=== PATIENT | female | born 1955 | race Caucasian/White ===

== ENCOUNTER 2020-10-04 09:50 | Outpatient (REF) | payer MEDICARE, SELFPAY ==
[2020-10-04 11:36] LABS: Alanine Aminotransferase 18 U/L (0-31); Albumin Level 4.4 g/dL (3.5-5.0); Alkaline Phosphatase 56 U/L (39-117); Anion Gap 13 (12-20); Aspartate Amino Transferase 16 U/L (5-31); Bilirubin Total 1.1 mg/dL (0.0-1.0); Blood Urea Nitrogen 18 mg/dL (9-16); Calcium 9.8 mg/dL (8.4-10.2); Carbon Dioxide 23 mmol/L (22-29); Chloride 107 mmol/L (96-108); Estimated Glomerular Filt Rate > 60; Glucose Random 93 mg/dL (60-115); Potassium 4.4 mmol/L (3.3-5.1); Sodium 139 mmol/L (135-145); Total Protein 6.9 g/dL (6.5-8.0)
== END 2020-10-04 09:51 | disposition home or self-care (01) ==
LOC: HO.MANLDS 09:50
PROVIDERS: PCP Physician Assistant; Visit Provider Physician Assistant
DX: I10 Essential (primary) hypertension (principal)
CPT/HCPCS: 36415; 80053

== ENCOUNTER 2021-03-14 09:19 | Outpatient (REF) | payer MEDICARE, SELFPAY ==
[2021-03-14 11:07] LABS: MANUAL DIFF FLAG NO
[2021-03-14 11:09] LABS: Basophils Percent Auto 0.7 % (0-2); Eosinophils Absolute Auto 0.4 X10*3/uL (0.0-0.4); Eosinophils Percent Auto 6.7 % (0-4); Hematocrit 42.7 % (37.0-47.0); Hemoglobin 13.8 g/dl (12.0-16.0); Imm Gran Abs Auto 0.02 X10*3/uL (0.00-0.03); Imm Gran Pct Auto 0.3 % (0.0-0.4); Lymphocytes Absolute Auto 1.4 X10*3/uL (1.2-4.9); Lymphocytes Percent Auto 23.4 % (20-40); Mean Corpuscular HGB Conc 32.3 g/dl (31.0-35.0); Mean Corpuscular Hemoglobin 30.2 pg (27.0-33.0); Mean Corpuscular Volume 93.4 fL (80.0-98.0); Mean Platelet Volume 10.1 fL (9.4-12.3); Monocytes Absolute Auto 0.4 X10*3/uL (0.1-1.2); Monocytes Percent Auto 7.4 % (2-11); Neutrophils Absolute Auto 3.6 x10*3/uL (2.0-8.3); Neutrophils Percent Auto 61.5 % (45-73); Platelet Count 253 X10*3/uL (160-400); Red Blood Count 4.57 X10*6/uL (4.20-5.50); Red Cell Distribution Width 12.6 % (11.0-16.0); White Blood Count 5.8 X10*3/uL (4.8-10.8)
[2021-03-14 11:23] LABS: Alanine Aminotransferase 26 U/L (0-31); Albumin Level 4.1 g/dL (3.5-5.0); Alkaline Phosphatase 65 U/L (39-117); Anion Gap 11 (12-20); Aspartate Amino Transferase 23 U/L (5-31); Bilirubin Total 1.4 mg/dL (0.0-1.0); Blood Urea Nitrogen 19 mg/dL (9-16); Calcium 9.7 mg/dL (8.4-10.2); Carbon Dioxide 27 mmol/L (22-29); Chloride 106 mmol/L (96-108); Cholesterol 277 mg/dL; Estimated Glomerular Filt Rate > 60; Glucose Fasting 91 mg/dL (60-99); HDL Cholesterol 53 mg/dL; Iron 136 mcg/dL (30-160); LDL Cholesterol Calculated 197 mg/dl; Percent Iron Saturation 35 % (15-50); Potassium 4.4 mmol/L (3.3-5.1); Sodium 140 mmol/L (135-145); Total Iron Binding Capacity 384 mcg/dL (228-428); Total Protein 6.7 g/dL (6.5-8.0); Triglycerides 136 mg/dL; Unsaturated Iron Binding 248 ug/dL
[2021-03-14 11:46] LABS: Free T4 (Free Thyroxine) 1.35 ng/dL (0.71-1.85); Vitamin D 25-OH Total 36.1 ng/mL (>30)
[2021-03-14 12:03] LABS: Folate 19.6 ng/mL (> or = 4.0); Vitamin B12 1836 pg/mL (200-900)
[2021-03-14 12:16] LABS: Ferritin 26 ng/mL (10-250); Thyroid Stimulating Hormone 0.96 uIU/mL (0.32-4.0)
== END 2021-03-14 09:20 | disposition home or self-care (01) ==
LOC: HO.MANLDS 09:19
PROVIDERS: PCP Physician Assistant; Visit Provider Physician Assistant
DX: L65.8 Other specified nonscarring hair loss (principal); E78.5 Hyperlipidemia, unspecified
CPT/HCPCS: 36415; 80053; 80061; 82306; 82607; 82728; 82746; 83540; 84439; 84443; 85025

== ENCOUNTER 2021-12-03 07:59 | Outpatient (REF) | payer MEDICARE, SELFPAY ==
[2021-12-03 11:29] LABS: MANUAL DIFF FLAG NO
[2021-12-03 11:32] LABS: Basophils Absolute Auto 0.1 X10*3/uL (0.0-0.2); Eosinophils Absolute Auto 0.3 X10*3/uL (0.0-0.4); Eosinophils Percent Auto 5.9 % (0-4); Hematocrit 39.7 % (37.0-47.0); Hemoglobin 12.7 g/dl (12.0-16.0); Imm Gran Abs Auto 0.02 X10*3/uL (0.00-0.03); Imm Gran Pct Auto 0.4 % (0.0-0.4); Lymphocytes Absolute Auto 1.4 X10*3/uL (1.2-4.9); Lymphocytes Percent Auto 27.9 % (20-40); Mean Corpuscular Hemoglobin 30.4 pg (27.0-33.0); Mean Platelet Volume 10.2 fL (9.4-12.3); Monocytes Absolute Auto 0.5 X10*3/uL (0.1-1.2); Neutrophils Absolute Auto 2.9 x10*3/uL (2.0-8.3); Neutrophils Percent Auto 55.8 % (45-73); Platelet Count 228 X10*3/uL (160-400); Red Blood Count 4.18 X10*6/uL (4.20-5.50); Red Cell Distribution Width 12.9 % (11.0-16.0); White Blood Count 5.1 X10*3/uL (4.8-10.8)
[2021-12-03 11:52] LABS: Alanine Aminotransferase 14 U/L (0-31); Alkaline Phosphatase 59 U/L (39-117); Anion Gap 13 (12-20); Aspartate Amino Transferase 17 U/L (5-31); Blood Urea Nitrogen 15 mg/dL (9-16); Calcium 9.5 mg/dL (8.4-10.2); Carbon Dioxide 28 mmol/L (22-29); Chloride 102 mmol/L (96-108); Cholesterol 241 mg/dL; Estimated Glomerular Filt Rate > 60; Glucose Random 90 mg/dL (60-115); HDL Cholesterol 49 mg/dL; LDL Cholesterol Calculated 167 mg/dl; Potassium 4.3 mmol/L (3.3-5.1); Sodium 139 mmol/L (135-145); Total Protein 6.6 g/dL (6.5-8.0); Triglycerides 125 mg/dL
[2021-12-03 12:25] LABS: Free T4 (Free Thyroxine) 1.13 ng/dL (0.71-1.85); Thyroid Stimulating Hormone 0.43 uIU/mL (0.32-4.0)
[2021-12-04 18:56] LABS: Lyme Abs Screen <0.90 index
== END 2021-12-03 08:00 | disposition home or self-care (01) ==
LOC: HO.MANLDS 07:59
PROVIDERS: Visit Provider Physician Assistant
DX: Z00.00 Encounter for general adult medical examination without abnormal findings (principal); M25.561 Pain in right knee
CPT/HCPCS: 36415; 80053; 80061; 84439; 84443; 85025; 86617; 86618

== ENCOUNTER 2023-07-14 09:31 | Outpatient (REF) | payer MEDICARE, SELFPAY ==
[2023-07-14 13:21] LABS: MANUAL DIFF FLAG NO
[2023-07-14 13:41] LABS: Basophils Absolute Auto 0.1 X10*3/uL (0.0-0.2); Basophils Percent Auto 1.4 % (0-2); Eosinophils Absolute Auto 0.4 X10*3/uL (0.0-0.4); Eosinophils Percent Auto 7.7 % (0-4); Hematocrit 40.2 % (37.0-47.0); Hemoglobin 13.1 g/dl (12.0-16.0); Imm Gran Abs Auto 0.01 X10*3/uL (0.00-0.03); Imm Gran Pct Auto 0.2 % (0.0-0.4); Lymphocytes Absolute Auto 1.6 X10*3/uL (1.2-4.9); Lymphocytes Percent Auto 32.1 % (20-40); Mean Corpuscular HGB Conc 32.6 g/dl (31.0-35.0); Mean Corpuscular Hemoglobin 30.8 pg (27.0-33.0); Mean Corpuscular Volume 94.4 fL (80.0-98.0); Mean Platelet Volume 10.7 fL (9.4-12.3); Monocytes Absolute Auto 0.4 X10*3/uL (0.1-1.2); Monocytes Percent Auto 8.5 % (2-11); Neutrophils Absolute Auto 2.5 x10*3/uL (2.0-8.3); Neutrophils Percent Auto 50.1 % (45-73); Platelet Count 211 X10*3/uL (160-400); Red Blood Count 4.26 X10*6/uL (4.20-5.50); Red Cell Distribution Width 13.4 % (11.0-16.0); White Blood Count 5.1 X10*3/uL (4.8-10.8)
[2023-07-14 13:57] LABS: Estimated Average Glucose 105 mg/dL; Hemoglobin A1c % 5.3 % (<6.0)
[2023-07-14 14:04] LABS: Alanine Aminotransferase 17 U/L (0-31); Albumin Level 4.2 g/dL (3.5-5.0); Alkaline Phosphatase 62 U/L (39-117); Anion Gap 12 (12-20); Aspartate Amino Transferase 20 U/L (5-31); Bilirubin Total 0.6 mg/dL (0.0-1.0); Blood Urea Nitrogen 23 mg/dL (9-16); Calcium 9.9 mg/dL (8.4-10.2); Carbon Dioxide 24 mmol/L (22-29); Chloride 107 mmol/L (96-108); Cholesterol 207 mg/dL (<200); Estimated Glomerular Filt Rate 52; Glucose Random 83 mg/dL (60-115); HDL Cholesterol 54 mg/dL (>40); LDL Cholesterol Calculated 137 mg/dL (<100); Potassium 4.4 mmol/L (3.3-5.1); Sodium 139 mmol/L (135-145); Total Protein 6.9 g/dL (6.5-8.0); Triglycerides 84 mg/dL (<150)
[2023-07-14 14:22] LABS: Free T4 (Free Thyroxine) 1.27 ng/dL (0.71-1.85); Thyroid Stimulating Hormone 0.95 uIU/mL (0.32-4.0); Vitamin D 25-OH Total 57.1 ng/mL (>30)
== END 2023-07-14 09:32 | disposition home or self-care (01) ==
LOC: HO.MANLDS 09:31
PROVIDERS: Visit Provider Physician Assistant
DX: Z00.00 Encounter for general adult medical examination without abnormal findings (principal)
CPT/HCPCS: 36415; 80053; 80061; 82306; 83036; 84439; 84443; 85025

== ENCOUNTER 2024-09-01 08:11 | Outpatient (REF) | payer MEDICARE, SELFPAY ==
--- OUTSIDE RECORDS SUMMARY | 2024-09-01 08:20 | XMS_ITS | Data Portability ---
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 REVIEW OF PRIOR EXTERNAL NOTES/RESULTS, ORDERING OF TEST(S) CATEGORY 2. ASSESSMENT REQUIRING INDEPENDENT HISTORIAN(S) INCLUDE WHO THE HISTORIAN IS AND RELATION TO PT AND WHY PT IS UNABLE TO GIVE COMPLETE HISTORY ELEMENT 3: RISK (LOW) RISK OF COMPLICATIONS AND/OR MORBIDITY OR MORTALITY OF PATIENT MANAGEMENT PROVIDER MUST THOROUGHLY DOCUMENT ALL OF THE ELEMENTS COVERED Not available 01/14/2022 12:08:33 07/02/2023 07/02/2023 will [email or web address] Not available 06/11 14:03:23 Plan of Treatment Reminders Order Date Submit Date Provider Last Modified By Organization Details Last Modified Time Details Appointments ANNUAL EXAM 2025 09:00A SHELTON BEUGM Not available Not available Not available Lab CMP, serum or plasma 2024 025 [facility] [address] [facility], [address], [place], [address], 07/28/2024 09:28:51 CBC w/ auto diff 2024 025 [facility], [address] [facility], [address], [place], [address], 07/28/2024 09:28:51 lipid panel, blood 2024 025 [facility], [address] [place] [address], [address], [place], [address], 07/28/2024 09:28:50 CMP, serum or plasma 2023 024 [facility], [address] [place] [address], [address], [place], [address], 07/15/2023 11:28:54 CBC w/ auto diff 2023 024 [facility], [address] [place] [address], [address], [place], [address], 07/15/2023 11:28:55 lipid panel, blood 2023 024 [facility], [address] [place] [address], [address], [place], [address], 07/15/2023 11:28:55 vitamin D, 25-hydrox y, total, serum 2023 024 [facility], [address] [place] [address], [address], [place], [address], 07/15/2023 11:28:55 hemoglobi n A1c, QN, blood 2023 024 [facility], [address] [place] [address], [address], [place], [address], 07/02/2023 14:05:07 TSH + free T4, serum 2023 024 [facility], [address] [place] [address], [place], [address], 07/15/2023 11:28:55 Referral gastroent erologist referral 2023 024 [facility], [address], [place], [address], 07/04/2023 08:22:39 orthopedi c surgeon referral - please eval for knee replaceme nt 2022 023 jo-ann Moncada MD, [address], [place], [address], 06/14/2022 10:39:32 Procedures None recorded. Surgeries None recorded. Imaging MAMMO, screening , digital, bilateral 2023 024 [email or web address] Not available 07/16/2023 08:31:54 Medication Orders oxybutyni n chloride ER 5 mg tablet,ex tended release 24 hr 2024 025 [id number], [address], [place], [phone], 07/28/2024 09:24:31 bupropion HCl XL 300 mg 24 hr tablet, extended release 2024 025 [id number], [address], [place], [phone], 07/28/2024 09:16:31 Patient TargetsNo targets recorded. Patient Instructions Encounter Date Encounter Id Patient Instructions Last Modified By Organization Details Last Modified Time 06/12/2022 [id number] learning about mood disorders Not available 06/12/2022 15:38:21 Reason for Referral Orthopedic Surgeon Referral for Osteoarthritis of left knee joint please eval for knee replacement Referring Physician: Karthikeyan Pineda, Internal Medicine, Encounter Date: 06/12/2022 Conveyor Attendant Referral for Screening for malignant neoplasm of colon needs 10 year screening colonoscopy, having issues with dysphagia and GERD Referring Physician: Nela James, Internal Medicine, Encounter Date: 07/02/2023 Results Created Date Observation Date Name Description Value Unit Range Abnormal Flag Note LastModifiedBy Organization Detail LastModifiedTime Result Notes None recorded. Problems Name Problem SNOMED Code Status Onset Date Resolution Date Notes Provider Name and Address Organization Details Recorded Time Hypothyr oidism 54060858 Active 2017 Not Available [facility] 0 02:44:18 Hypercho lesterol emia 97606048 Active 2017 Not Available [facility] 0 02:44:18 Sleep apnea 46590778 Active 2017 Not Available [facility] 0 02:44:18 Low back pain 099244930 Active 2017 Not Available [facility] 0 02:44:18 Knee pain Active 2017 Not Available [facility] 0 02:44:18 Obstruct ashtyn sleep apnea syndrome 40376620 Completed 201701/27/2018 [email or web address] 8 08:37:45 History of calculus of kidney 746038046 Active 2017 Not Available [facility] 0 02:44:18 [facility] hyperten markel 04093286 Active 2018 Not Available [facility] 0 02:44:18 Depressi ve disorder 50980084 Active 2018 F33.8 Not Available [facility] 0 02:44:18 Body mass index 30+ - obesity 865391400 Active 2019 Not Available [facility] 0 02:44:18 Urinary incontin ence 837739295 Active 2021 SHELTON RAMIREZ [address] [place], [address], [facility] 2 13:50:46 Constipa tion 71550394 Active 2021 SHELTON RAMIREZ [address] [place], [address], [facility] 2 13:51:34 Pain of bilatera l knee joints 49565531423 4104 Active 2021 SHELTON RAMIREZ [address] [place], [address], [facility] 2 13:54:14 Loss of hair 530812786 Active 2021 SHELTON RAMIREZ [address] [place], [address], [facility] 2 13:58:40 Irritabl e bowel syndrome characte rized by constipa tion 084256359 Active 2021 SHELTON RAMIREZ [address] [place], [address], [facility] 2 12:36:32 Osteoart hritis of left knee joint 42777132242 9109 Active 2021 Karthikeyan Pineda DO [address] [place] [address], [address], [facility] 2 12:08:47 Cobalami n deficien cy 755586644 Active 2021 Karthikeyan Pineda DO [address] [place] [address], [address], [facility] 2 12:08:49 Osteoart hritis of right knee joint 41324969241 9100 Active 2022 Karthikeyan Pineda DO [address] [place] [address], [address], [facility] 3 11:55:07 Osteoart hritis of knee 658089503 Active 2022 Karthikeyan Pineda DO [address] [place] [address], [address], [facility] 3 15:33:37 COVID-19 500537312 Active 2023 SHELTON RAMIREZ [address] [place] [address], [address], [facility] 4 13:57:06 Anxiety 85410512 Active 2024 SHELTON RAMIREZ [address] [place] [address], [address], [facility] 5 09:15:49 Overacti ve urinary bladder 749000763 Active 2024 SHELTON RAMIREZ [address] [place] [address], [address], [facility] 5 09:23:25 Notes:TKR L Problem Notes None recorded. Procedures Surgical History Date Name Laterality Status Provider Name and Address Organization Details Recorded Time 023 Corticosteroid Injection completed Karthikeyan Pineda DO [address] [place] [address], [address], [facility] 06/12/2022 15:37:40 023 Corticosteroid Injection completed Karthikeyan Pineda DO [address] [place] [address], [address], [facility] 03/01/2022 11:58:21 022 Corticosteroid Injection completed Karthikeyan Pineda DO [address] [place] [address], [address], [facility] 01/14/2022 12:06:31 021 Corticosteroid Injection completed Karthikeyan Pineda DO [address] [place] [address], [address], [facility] 12/01/2020 16:36:08 017 Date of Last Pap Smear completed Lalitha López NP, S [address] [place] [address], [address], [facility] 01/27/2018 10:40:32 tonsillectomy completed Lalitha naranjo NP, S [address] [place] [address], [address], [facility] 01/27/2018 10:38:07 mammography and biopsy of right breast completed Lalitha López NP, S [address] [place] [address], [address], [place] [facility] 01/27/2018 10:38:23 Unlisted px arthroscopy completed Lalitha López NP, S [address] [place] [address], [address], [facility] 01/27/2018 10:38:47 laparoscopy completed Lalitha Hoang i, NP, S [address] [place] [address], [address], [facility] 01/27/2018 10:39:21 Caesarean Section completed Lalitha López NP, S [address] [place] [address], [address], [facility] 01/27/2018 10:39:31 ultrasonic fragmentation of urinary stone through percutaneous nephrostomy completed Lalitha López NP, S [address] [place] [address], [address], [facility] 01/27/2018 10:39:44 Removal of fallopian tube completed Lalitha López NP, S [address] [place] [address], [address], [facility] 01/27/2018 10:41:57 Imaging Results None recorded. Procedure Notes None recorded. Medical Equipment None Reported. Allergies No known drug allergies Medications Name Sig Start Date Stop Date Status Note LastModified by Organization Details LastModified Time celecoxib 200 mg capsule TAKE 1 CAPSULE BY MOUTH EVERY DAY 09/11 completed Not Available Not Available Not Available amoxicillin 500 mg capsule TAKE 4 CAPSULES BY MOUTH 1 HOUR BEFORE DENTAL WORK DIRECTED 07/01 completed Not Available Not Available Not Available phenazopyri dine 200 mg tablet TAKE 1 TABLET BY MOUTH EVERY 8 HOURS NEEDED 07/28 completed Not Available Not Available Not Available tramadol 50 mg tablet TAKE 1 TO 2 TABLETS BY MOUTH EVERY 6 HOURS NEEDED FOR MILD PAIN. DO NOT DRIVE WHILE TAKING THIS MEDICATIO N 09/11 completed Not Available Not Available Not Available amoxicillin 500 mg tablet TAKE 4 TABLETS BY MOUTH ONE HOUR BEFORE PROCEDURE active Not Available Not Available No t Available oxycodone-a cetaminophe n 5 mg-325 mg tablet TAKE 1 TABLET BY MOUTH EVERY 6 HOURS NEEDED FOR PAIN 11/21 completed Not Available Not Available Not Available pantoprazol e 40 mg tablet,lala louis release 09/11 completed Not Available Not Available Not Available lisinopril 10 mg tablet cut pill in half and take half a pill every day as directed 10/03 completed Not Available Not Available Not Available oxybutynin chloride ER 5 mg tablet,exte nded release 24 hr TAKE 1 TABLET BY MOUTH EVERY DAY 2024 active Not Available Not Available Not Avai lable omeprazole 20 mg capsule,del ayed release TAKE 1 CAPSULE BY MOUTH DAILY 30 MINUTES BEFORE BREAKFAST active Not Available Not Available No t Available lisinopril 5 mg tablet TAKE 1 TABLET BY MOUTH EVERY DAY active Not Available Not Available No t Available polyethylen e glycol 3350 17 gram/dose oral powder MIX AND DRINK 17 GRAMS BY MOUTH EVERY NIGHT AT BEDTIME 09/11 completed Not Available Not Available Not Available ketoconazol e 2 % topical cream APPLY TOPICALLY TO THE AFFECTED AREA EVERY DAY 07/01 completed Not Available Not Available Not Available naproxen 500 mg tablet TAKE 1 TABLET BY MOUTH TWICE A DAY NEEDED FOR 30 DAYS 09/11 completed Not Available Not Available Not Available levothyroxi ne 112 mcg tablet TAKE 1 TABLET BY MOUTH EVERY DAY active Not Available Not Available No t Available oxycodone 5 mg tablet TAKE 1 TO 2 TABLETS BY MOUTH EVERY 6 HOURS NEEDED FOR MODERATE TO SEVERE PAIN. DO NOT DRIVE WHILE TAKING THIS MEDICATIO N 09/11 completed Not Available Not Available Not Available Laxative (bisacodyl) 5 mg tablet TAKE 4 TABLETS BY MOUTH ONCE DIRECTED active Not Available Not Available No t Available bupropion HCl XL 300 mg 24 hr tablet, extended release TAKE 1 TABLET BY MOUTH EVERY DAY active Not Available Not Available No t Available bupropion HCl XL 150 mg 24 hr tablet, extended release TAKE 1 TABLET BY MOUTH EVERY DAY 2024 active Not Available Not Available Not Avai lable lactulose 10 gram/15 mL oral solution TAKE 15 ML BY MOUTH EVERY DAY FOR 14 DAYS NEEDED 07/01 completed Not Available Not Available Not Available solifenacin 5 mg tablet TAKE 1 TABLET BY MOUTH EVERY DAY 07/01 completed Not Available Not Available Not Available solifenacin 10 mg tablet TAKE 1 TABLET BY MOUTH EVERY DAY 07/28 completed Not Available Not Available Not Available Boostrix Tdap 2.5 Lf unit-8 mcg-5 Lf/0.5 mL intramuscul ar syringe 10/03 completed Not Available Not Available Not Available lubiproston e 8 mcg capsule TAKE 1 CAPSULE BY MOUTH TWICE DAILY 09/11 completed Not Available Not Available Not Available diclofenac 1 % topical gel APPLY 2 GRAMS TO THE AFFECTED AREA(S) BY TOPICAL ROUTE 4 TIMES PER DAY 07/01 completed Not Available Not Available Not Available GaviLyte-G 236 gram-22.74 gram-6.74 gram-5.86 gram oral solution MIX AND DRINK DIRECTED 07/28 completed Not Available Not Available Not Available minoxidil 5 % topical foam Apply 1 g every day by topical route for 30 days. 09/11 completed Not Available Not Available Not Available Prevnar 13 (PF) 0.5 mL intramuscul ar syringe 10/03 completed Not Available Not Available Not Available PreviDent 5000 Booster Plus 1.1 % dental paste BRUSH DIRECTED TWICE DAILY active Not Available Not Available No t Available Linzess 72 mcg capsule Take 1 capsule every day by oral route for 30 days. 09/11 completed Not Available Not Available Not Available Shingrix (PF) 50 mcg/0.5 mL intramuscul ar suspension, kit 10/03 completed Not Available Not Available Not Available Fluarix Quad 0901-6344 (PF) 60 mcg (15 mcg x 4)/0.5 mL IM syringe 10/03 completed Not Available Not Available Not Available Fluzone High-Dose (PF) 180 mcg/0.5 mL intramuscul ar syringe 10/03 completed Not Available Not Available Not Available Paxlovid 300 mg (150 mg x 2)-100 mg tablets in a dose pack TK 2 NIRMATREL VIR TS AND 1 RITONAVIR T TOGETHER PO BID FOR 5 DAYS 07/28 completed Not Available Not Available Not Available Vitals Date Recorded Body weight Body mass index (BMI) Body height Heart rate Oxygen saturation Oxygen saturation in Arterial blood by Pulse oximetry Systolic And Diastolic Provider Name and Address Organization Details Last Updated DateTime 4 967911. 72 g 36.9 kg/m2 166.37 cm 72 /min 97 % 97 % 118/72 mm[Hg] Florence Curtis [facility] 4 13:29:03 Date Recorded Body height Body mass index (BMI) Body weight Heart rate Oxygen saturation Oxygen saturation in Arterial blood by Pulse oximetry Systolic And Diastolic Provider Name and Address Organization Details Last Updated DateTime 5 165.1 cm 37.4 kg/m2 161110. 28 g 68 /min 97 % 97 % 139/68 mm[Hg] Bianka Acunamond [facility] 5 09:11:41 Date Recorded Body height Oxygen saturation Oxygen saturation in Arterial blood by Pulse oximetry Heart rate Systolic And Diastolic Provider Name and Address Organization Details Last Updated DateTime 2 166.37 cm 98 % 98 % 86 /min 120/78 mm[Hg] Deanna Gil [facility] 2 11:34:17 Social History Question Answer Notes LastModified by [employer] ion Details LastModified Time Tobacco Smoking Status Never Smoker Not Available [facility] 12/14/2019 03:36:24 What Was The Date Of Your Most Recent Tobacco Screening? 07/28/2024 [email or web address] Information not available 07/28/2024 Sex: Unknown Functional Status None recorded. Mental Status None recorded. Family History Relationship Description Onset Age of this Age Resolved Age Notes LastModified by Organization Details LastModified Time Father Glaucoma 80 macula r degene ration , NIDDM, COPD [email or web address] Not available 07/28/2024 09:05:28 Mother Dementia 88 [email or web address] Not available 01/27/2018 10:37:49 Medical History Condition Response Coronary Artery Disease N Gout N Kidney Stones Y Blood Diseases N Hyperthyroidism N Breast Cancer N Blood Transfusion N Lung Disease N Depression Y COPD N Hypothyroidism Y Defects or Inherited Disease N Anesthesia Complications N Anxiety Disorder N Obesity Y Arthritis Y Infertility Y Mental Disorder N Cancer N Bladder or Kidney Problems N High Cholesterol Y Liver Disease N Fibromyalgia N Headaches N Kidney Disease N Allergies/Hayfever N Hospitalizations N Thyroid Problems Y GI Problems N Skin Problems Y Anemia N Constipation Y Mental Illness N Diabetes N Seizures/Epilepsy N Congestive Heart Failure (CHF) N Eczema N Abuse/Domestic Violence N Diverticulitis N Asthma N Reflux/GERD Y Heart Disease N Pulmonary Embolism N Hypertension N Chicken Pox Y Autism Spectrum Disorder (ASD) N Gynecological History Statement/Question Response If Post Menopausal, Age at Menopause 53 Date of Last Pap Smear 01/24/2017 Age at Menarche 11 Obstetrics History GPAL:G 2 P 1 0 1 0 Type Value Full Term 1 Ectopics 1 Total 2 Immunizations Vaccine Type Date Status Note Provider Nam e and Address Organization Details Recorded Time COVID-19, mRNA, LNP-S, PF, 30 mcg/0.3 mL dose 04/17/19 21 completed Joelle Gencarelle null, [facility] 11/21/2021 13:27:22 COVID-19, mRNA, LNP-S, PF, 30 mcg/0.3 mL dose 04/28/19 21 completed Joelle Gencarelle null, [facility] 11/21/2021 13:27:22 COVID-19, mRNA, LNP-S, PF, 30 mcg/0.3 mL dose 11/29/19 21 [facility] 13:27:22 COVID-19, mRNA, LNP-S, PF, 30 mcg/0.3 mL dose 06/20/19 22 completed Joelle Gencarelle null, [facility] 11/21/2021 13:27:22 Influenza, split virus, quadrivalent, preservative 11/29/19 21 [facility] 11/21/2021 13:27:22 Pneumococcal conjugate PCV20, polysaccharide NRI176 conjugate, adjuvant, PF 06/20/19 22 completed Not Available [facility] 05/17/2022 03:01:06 Influenza, split virus, quadrivalent, preservative 12/25/19 18 [facility] 11/21/2021 13:27:22 zoster live 02/10/19 15 completed Lalitha López, MELIA, S [address] [place] [address], [address], [facility] 01/27/2018 10:48:09 zoster live 05/27/19 19 completed Sara Dutton [facility] 05/27/2018 09:07:25 zoster live 07/29/19 19 completed Karthikeyan Pineda, [address] [place] [address], [address], [facility] 07/29/2018 08:32:50 Pneumococcal conjugate PCV 13 12/12/19 19 completed Joelle Gencarelle annetta, [facility] 11/21/2021 13:27:22 Influenza, split virus, quadrivalent, preservative 12/12/19 19 completed Joelle Gencarelle annetta, [facility] 11/21/2021 13:27:22 Tdap 01/13/20 19 completed Karthikeyan Pineda DO [address] [place] [address], [address], [facility] 01/13/2019 06:50:00 Influenza, split virus, quadrivalent, preservative 11/30/19 20 completed Joelle Gencarelle annetta, [facility] 11/21/2021 13:27:22 Past Encounters Encounter ID Performer Location Encounter Start Date Encounter Closed Date Diagnosis/Indication Diagnosis SNOMED-CT Code Diagnosis ICD10 Code Diagnosis Note [id number] Karthikeyan Pineda [facility] [address],[place] [address] 01/27/2018 10:21:36 01/30/2018 12:19:56 Adult health examination 814574547 Z00.01 Sleep apnea 96367382 G47 .30 compliant Hypercholesterolemia 136 48733 E78.00 Hypothyroidism 29858590 E03.9 Increased blood pressure 04166685 R03.0 To check Q week in pharmacy appt if remains elevated [id number] Karthikeyan Pineda DO [facility] [address] [facility] [address] 03/10/2018 08:55:19 03/10/2018 09:14:14 Essential hypertension 30468725 I10 Sleep apnea 55966002 G47 .30 compliant Hypothyroidism 27643625 E03.9 stable Depressive disorder 3548 9007 F33.8 bupropion helpful, continue [id number] Karthikeyan Pineda [facility] [address] [facility] [address] 04/14/2018 09:00:21 04/14/2018 11:34:58 Hypercholesterolemia 42250156 E78.00 Essential hypertension 67185960 I10 Sleep apnea 48267060 G47 .30 compliant Hypothyroidism 40821480 E03.9 stable [id number] Karthikeyan Pineda [facility] [address] [facility],[place] [address] 09/11/2018 14:46:50 09/11/2018 15:34:09 Hypercholesterolemia 05096002 E78.00 borderline rr 4.01 HDL 55 is protective continue to work on diet total/LDL increased from last year, but still borderline Essential hypertension 91322415 I10 well controlled Sleep apnea 63246287 G47 .30 uses cpap every night Hypothyroidism 29821767 E03.9 stable Pain of mu ltiple joints 88501836 M25.50 just knees [id number] Karthikeyan Pineda [facility] [address] [facility], [place] [address] 04/05/2019 08:53:12 04/05/2019 09:39:05 Adult health examination 325129870 Z00.00 HCP - already has PPW - anastacia martinez last pap with ES, never had abnormal Active or passive immunization 166573305 Z23 UTD Essential hypertension 20607028 I10 well controlled Sleep apnea 13682891 G47 .30 uses cpap every night Hypothyroidism 90179573 E03.9 stable Hypercholesterolemia 136 47618 E78.00 borderline rr 3.67 HDL 68 is protective continue to work on diet total/LDL mildly increased from 6 mos ago Microscopic hematuria 19 3069632 R31.21 seeing urology currently has stones has f/u upcoming Depressive disorder 3548 9007 F33.8 on wellbutrin - stable Body mass index 30+ - obesity 346357906 Z68.34 continue to improve diet and increase level of activity Decreased estrogen level 852046504 E28.39 Screening for malignant neoplasm of breast 543141665 Z12.31 Osteoarthritis 708557443 M19.90 uses once per day, usually daily has seen ortho in the past has tried the OTC dose, not as helpful no abdominal pain no black or bloody stools usually takes it with meals [id number] Karthikeyan Pineda [facility] [address] [facility],[place] [address] 10/04/2019 08:58:33 10/04/2019 09:23:01 Depressive disorder 55998430 F32.9 stable on medication Essential hypertension 94516909 I10 BP is well controlled on medication Hypothyroidism 25048865 E03.9 stable on medication , labs looked good Osteoarthritis 082457516 M19.90 good, stable, only needs to take naproxen every so often, not everyday told to take with food and monitor if has blood in stool and stomach upset with it [id number] Karthikeyan Pineda [facility] [address] [facility], [facility] [facility] [place] [address] 10/04/2020 08:58:47 10/04/2020 09:49:33 Essential hypertension 56709562 I10 BP excellent Active or passive immunization 305517741 Z23 advised Adult heal th examination 818039599 Z00.00 BP excellent today Depressive disorder 3548 9007 F32.9 stable on medication Onychomycosis 216434726 B35.1 will trial topical anti-funga l Osteoarthr itis of left knee joint [id number] 74399 M17.12 will schedule with for cortisone injection [id number] Karthikeyan Pineda [facility] [address] [facility],[place] [address] 12/01/2020 16:07:23 12/01/2020 16:39:16 Osteoarthritis of left knee joint [id number] 63443 M17.12 well tolertated and we will see how she does [id number] Karthikeyan Pineda [facility] [address] [facility], [place] [address] 03/13/2021 08:39:00 03/14/2021 10:24:34 Loss of hair [id number] L65.8 will fu with lab work Hyperlipidemia 66006743 E78.5 will fu with lab work [id number] Karthikeyan Pineda [facility] [address] [facility], [place] [address] 11/21/2021 13:27:09 11/21/2021 14:27:39 Active or passive immunization [id number] Z23 advised Adult heal th examination 428452793 Z00.00 BP excellent today Urinary incontinence 165 550612 N39.41 will try combo with patient Constipation 04701312 K5 9.02 will try combo to keep patient regular and help with the urine sample Pain of bi lateral knee joints 4102731205 41862 M25.561 will fu with bilateral repeat knee XR Loss of hair 707751948 L 65.8 will fu with lab work Depressive disorder 3548 9007 F32.9 stable on medication [id number] Karthikeyan Pineda [facility] [address] [facility],[place] [address] 01/14/2022 11:29:14 01/14/2022 13:32:57 Osteoarthritis of left knee joint [id number] 02002 M17.12 well tolertated and we will see how she does Cobalamin deficiency 190 757181 E53.8 [id number] Karthikeyan Pineda [facility] [address] [facility],[place] [address] 03/01/2022 11:12:50 03/01/2022 12:09:17 Osteoarthritis of right knee joint [id number] 76903 [place]17.[place] [id number] Karthikeyan Pineda [facility] [address] [facility],[place] [address] 06/12/2022 15:08:36 06/12/2022 15:51:25 Depressive disorder 21664177 F33.8 Osteoarthr itis of left knee joint 7825169754 69234 M17.12 well tolertated and we will see how she does [id number] Karthikeyan Pineda [facility] [address] [facility] [address] 07/02/2023 13:24:38 07/02/2023 16:44:49 Active or passive immunization 108371108 Z23 advised Adult heal th examination 275802968 Z00.00 BP excellent today Depression screening 171 815199 Z13.31 screening Depressive disorder 3548 9007 F33.8 stable on medication Screening for malignant neoplasm of colon 414435721 Z12.11 agreed to 10 yr fu screening for colonoscop y Screening mammography 24 703574 Z12.31 will set up for routine screening MM [id number] Karthikeyan Pineda DO [facility] Internal Medicine [address] [facility],[place] [address] 07/28/2024 09:03:52 07/28/2024 09:34:59 Depressive disorder 98094636 F33.8 stable on medication Anxiety 94718500 F41.9 needs adjustment on the medication General ex amination of patient 792043594 Z00.00 BP excellent today Overactive urinary bladder 838630056 N32.81 will try combo with patient Health Concerns Section Related Observation LastModified by Organization Detai ls LastModified Time None Recorded Concern Status LastModified by Organization Details LastModified Time None Recorded Advance Directives Directive None Recorded Payers Insurance Date Sequence Insurance Name Policy Number Policy Stephens Covered Member ID Stephens Member ID Guarantor Name 07/28/2024 1 [facility] [id number] Viv Lau Tommy [id number] Viv Martinez 07/28/2024 1 [facility] [id number] Viv Tommy [id number] Viv Lau Tommy Notes Date Note Type Note Provider Name a nd Address Organization Details Recorded Time 2 text/html here for cortisone injdoing well otherwise Karthikeyan CowanJaved Pineda DO [address] [place] [address], [phone], [facility] 01/14/2022 12:09:46 3 text/html here for cor t injection of the right knee Karthikeyan CowanJavde Pineda DO [address] [place] [address], [phone], [facility] 03/01/2022 12:02:17 3 text/html still having trouble with her left kneedifficult to walk or move Karthikeyan Lyn DO Miriam [address] [place] [address], [phone], [facility] 06/12/2022 15:45:48 4 text/html Annual WellnessReported bypatient.Diet and Nutrition:healthy diet; discussed vitamin and supplement use; discussed portion control; discussed maintaining calcium balance; discussed diet improvement Fracture Risk:no history of fractures; no recent explained fracture; no sudden unexplained fractures; no previous musculoskeletal injuries; fell recently about a few weeks ago, landed on her butt doing well Physical Activity:exercises on a regular basis; recent increase in physical activity; good physical condition; discussed weightbearing activities; discussed exercise habits Additional Lifestyle Factors:no tobacco use; no alcohol intake; stopped drinking alcohol Depression Risk:never feels sad, empty, or tearful; no loss of interest in activities; no significant changes in weight; no sleep disturbances or insomnia; no agitation; no loss of energy; no feelings of worthlessness or guilt; no thoughts of suicide; no history of depression; no history of mood disorders Hearing:no loss of hearing Vision:no vision problems left TKR (Dr. Jett) discussed trip to [place] will need preventative pill SHELTON RAMIREZ [address] [place], [address], [facility] 07/02/2023 14:12:33 5 text/html Annual WellnessReported bypatient.Diet and Nutrition:healthy diet; discussed vitamin and supplement use; discussed portion control; discussed maintaining calcium balance; discussed diet improvement Fracture Risk:no history of fractures; no recent explained fracture; no sudden unexplained fractures; no previous musculoskeletal injuries Physical Activity:exercises on a regular basis; recent increase in physical activity; good physical condition; discussed weightbearing activities; discussed exercise habits; moderate Additional Lifestyle Factors:no tobacco use; drinks alcohol (mild-moderate) Depression Risk:never feels sad, empty, or tearful; no loss of interest in activities; no significant changes in weight; no sleep disturbances or insomnia; no agitation; no loss of energy; no feelings of worthlessness or guilt; no thoughts of suicide; no history of depression; no history of mood disorders Hearing:no loss of hearing Vision:no vision problemsNotes:last dentist appt was a month ago, goes every three moslast eye exam was a year ago the patient reports she is getting a total knee replacement of her right knee with Dr. Bordenready had her left knee done SHELTON RAMIREZ [address] [place], [address], [facility] Medicine 07/28/2024 09:32:48 OBGyn Episode No OBEpisode recorded.
--- OUTSIDE RECORDS SUMMARY | 2024-09-01 08:20 | XMS_ITS | Encounter Summary ---
Author Organization [facility] Address [address] [place] [address] Phone Care Team Providers Care Environmental Issues Instructor Name Role Phone Karthikeyan Pineda DO Unavailable Anushka Hill [employer] Unavailable Vy Elizabeth MD Unavailable Fabio Robins DPM Unavailable Unavailable Rosaura Gillette MD Unavailable [phone] Adry Salas NP Unavailable Karthikeyan Pineda DO Primary Care Provider [phone] Encounter Details Date Type Department Care Team (Late st Contact Info) Description 04/05/2019 Ancillary Orders Virtual Department [address] [place] [address] Katie Maria PA-C [address] [place] [address] Breast screening; Decreased estrogen level; Other primary ovarian failure Social History Tobacco Use Types Packs/Day Years Used Date Smoking Tobacco: Never Assessed Comments Unknown Sex and Gender Information Value Date Recorded Sex Assigned at Not on file Legal Sex Female 9:57 PM EDT Gender Identity Not on file Sexual Orientation Not on file documented as of this encounter Plan of Treatment Not on file documented as of this encounter Results * BD DXA AXIAL (SPINE) WITH HIP (10/28/2019 2:46 PM EDT) Anatomical Region Laterality Modality Bone Density Bone Density 10/28/2019 4:22 PM EDT Impressions 10/28/2019 4:25 PM EDT Overall normal bone mineral density but that focally in the left femoral neck is within the osteopenic range. Narrative 10/28/2019 4:25 PM EDT This is a 64-year-old postmenopausal white female with an undisclosed perceived height loss. She reports no family history of osteoporosis. This a baseline study. Evaluation of the lumbar spine and hips was performed and appears to be technically adequate. Total bone mineral density in the L1-L4 vertebral bodies was calculated at 0.981 gm/cm2 with a T score of -0.6. This falls within the WHO classification of normal. Total bone mineral density in the right proximal femur was calculated at 0.930 gm/cm2 with a T-score of -0.1 falling within the WHO classification of normal. Right femoral neck bone mineral density was calculated at 0.759 gm/cm2 with a T-score of -0.8. Total bone mineral density in the left proximal femur was calculated at 0.963 gm/cm2 with a T-score of 0.2 falling within the WHO classification of normal. Bone mineral density in the left femoral neck was calculated at 0.728 gm/cm2 with a T-score of -1.1. FRAX: WHO Fracture Risk Assessment 10 year fracture risk Major Osteoporotic Fracture: 7.8% . Hip Fracture: 0.6% . Procedure Note Talha Quan MD - 10/28/2019 This is a 64-year-old postmenopausal white female with an undisclosedperceived height loss. She reports no family history of osteoporosis. Thisa baseline study. Evaluation of the lumbar spine and hips was performed and appears to betechnically adequate. Total bone mineral density in the L1-L4 vertebral bodies was calculated at0.981 gm/cm2 with a T score of -0.6. This falls within the WHOclassification of normal. Total bone mineral density in the right proximal femur was calculated at0.930 gm/cm2 with a T-score of -0.1 falling within the WHO classificationof normal. Right femoral neck bone mineral density was calculated at 0.759gm/cm2 with a T-score of -0.8. Total bone mineral density in the left proximal femur was calculated at0.963 gm/cm2 with a T-score of 0.2 falling within the WHO classificationof normal. Bone mineral density in the left femoral neck was calculated at0.728 gm/cm2 with a T-score of -1.1. FRAX: WHO Fracture Risk Assessment 10 year fracture risk Major Osteoporotic Fracture: 7.8% . Hip Fracture: 0.6% . IMPRESSION: Overall normal bone mineral density but that focally in the left femoralneck is within the osteopenic range. May Candace FOY IMG BD BONE DENSITY DEXA Fin al Result * BI MAMMOGRAM SCREENING WITH TOMOSYNTHESIS WITH CAD (BILATERAL) (10/28/2019 2:39 PM EDT) Anatomical Region Laterality Modality Breast Left, Breast Right, Breast Bilateral Bila teral Mammography 10/28/2019 8:25 PM EDT Impressions 10/28/2019 8:27 PM EDT BILATERAL BREASTS: Negative, no evidence of malignancy. Normal interval follow- up is recommended in 12 months. BI-RADS: BI-RADS CATEGORY: 1 - Negative. DENSITY: There are scattered fibroglandular densities. Narrative 10/28/2019 8:27 PM EDT STUDY: Bilateral screening mammography with tomosynthesis and CAD TECHNIQUE: Bilateral full-field digital screening mammography is obtained and read in conjunction with computer-aided detection. Tomosynthesis as well as 2-D C view imaging were obtained. COMPARISON: Comparison made to multiple prior, most recent October 28, 2019, and most remote December 09, 2008. BREAST COMPOSITION: There are scattered areas of fibroglandular density BILATERAL BREASTS: No significant masses, calcifications or other abnormalities are seen. Procedure Note Gabo Galindo MD - 10/28/2019 STUDY: Bilateral screening mammography with tomosynthesis and CAD TECHNIQUE: Bilateral full-field digital screening mammography is obtainedand read in conjunction with computer-aided detection. Tomosynthesis aswell as 2-D C view imaging were obtained. COMPARISON: Comparison made to multiple prior, most recent October, and most remote December 09, 2008. BREAST COMPOSITION: There are scattered areas of fibroglandulardensity BILATERAL BREASTS: No significant masses, calcifications or otherabnormalities are seen. IMPRESSION: BILATERAL BREASTS: Negative, no evidence of malignancy. Normal intervalfollow-up is recommended in 12 months. BI-RADS: BI-RADS CATEGORY: 1 - Negative. DENSITY: There are scattered fibroglandular densities. 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 Breast screening Breast screening, unspecified documented in this encounter Care Teams Environmental Issues Instructor Relationship Specialty Start Date End Date Karthikeyan Pineda DO PCP - General Internal Medicine 12/06/16 Karthikeyan Pineda DO Historical LMR Provider 11/25/16 Anushka Hill NP [address] [place] [address] [email or web address] Historical LMR Provider 11/25/16 2 Vy Elizabeth MD [address] [place] [address], [address] [place] [address] Historical LMR Provider 11/25/16 Fabio Robins DPM [address] [place] [address] Historical LMR Provider 11/25/1602/17/21 Rosaura Gillette MD [address] [place] [address] Orthopedics & Sports Medicine, [facility] [place] [address] [email or web address] Historical LMR Provider 11/25/16 Adry Salas NP [address] [place] [address] Historical LMR Provider 11/25/16 2 documented as of this encounter Additional Source Comments The information contained in this document represents components of the legal health record. It is not the complete legal health record.[facility]
[2024-09-01 13:23] LABS: MANUAL DIFF FLAG NO
[2024-09-01 13:36] LABS: Hematocrit 41.6 % (37.0-47.0); Hemoglobin 13.6 g/dl (12.0-16.0); Imm Gran Abs Auto 0.02 X10*3/uL (0.00-0.03); Imm Gran Pct Auto 0.3 % (0.0-0.4); Lymphocytes Absolute Auto 2.0 X10*3/uL (1.2-4.9); Mean Corpuscular HGB Conc 32.7 g/dl (31.0-35.0); Mean Corpuscular Hemoglobin 31.1 pg (27.0-33.0); Mean Corpuscular Volume 95.2 fL (80.0-98.0); NRBC Abs Auto 0.000 X10*3/uL (0.0-0.012); NRBC Pct Auto 0.0 /100WBC (0.0-0.2); Platelet Count 227 X10*3/uL (160-400); Red Blood Count 4.37 X10*6/uL (4.20-5.50); White Blood Count 5.8 X10*3/uL (4.8-10.8)
[2024-09-01 14:00] LABS: Alanine Aminotransferase 20 U/L (0-31); Albumin Level 4.2 g/dL (3.5-5.0); Alkaline Phosphatase 47 U/L (39-117); Anion Gap 10 (12-20); Aspartate Amino Transferase 21 U/L (5-31); Blood Urea Nitrogen 18 mg/dL (9-16); Calcium 9.3 mg/dL (8.4-10.2); Carbon Dioxide 26 mmol/L (22-29); Chloride 108 mmol/L (96-108); Cholesterol 201 mg/dL (<200); Estimated Glomerular Filt Rate > 60; HDL Cholesterol 51 mg/dL (>40); Potassium 4.5 mmol/L (3.3-5.1); Sodium 139 mmol/L (135-145); Total Protein 6.8 g/dL (6.5-8.0); Triglycerides 99 mg/dL (<150)
== END 2024-09-01 08:12 | disposition home or self-care (01) ==
LOC: HO.MANLDS 08:11
PROVIDERS: Visit Provider Physician Assistant
DX: Z00.00 Encounter for general adult medical examination without abnormal findings (principal); Z13.6 Encounter for screening for cardiovascular disorders
CPT/HCPCS: 36415; 80053; 80061; 85025